=== PATIENT | male | born 1985 | race Caucasian/White ===

== ENCOUNTER → 2017-08-31 | Outpatient (CLI) | payer BC, OTHER | END | disposition home or self-care (01) | LOC: C.RDSM 14:22 | PROVIDERS: ATTEND Orthopaedic Surgery | DX: M25.531 Pain in right wrist (principal) ==

== ENCOUNTER → 2017-10-12 | Day surgery (SDC) | payer OTHER ==
[2017-10-08 13:42] VITALS: Ht 182.9 cm; Wt 86.4 kg
[~2017-10-12] VITALS: Ht 182.9 cm; Wt 86.4 kg
[~2017-10-12] MED LIST: ATROPINE SULFATE 0.1 MG/ML 5ML SYR IV PRN; BUPIVACAINE/EPINEPHRINE 0.5% MPF 1:200,000 30 ML VIAL ONE; CEFAZOLIN 2000MG IV PUSH 10 ML IV SCH; DIPH25CA5 PO; EpHEDrine SULFATE INJ 50 MG/ML AMP IV PRN; FENTANYL CITRATE INJ 50 MCG/1 ML 2 ML VIAL IV PRN; FENTANYL CITRATE INJ 50 MCG/1 ML 2 ML VIAL ONE; HYDROmorphone INJ 1 MG/ML SYR IV PRN; LACTATED RINGER'S 1000ML 1,000 ML IV SCH; LIDOCAINE HCL 2% 2 ML VIAL (20MG/ML) ONE; LIDOCAINE HCL 2% LOCAL 20 ML VIAL ONE; LORA10TA51 PO; METOCLOPRAMIDE HCL INJ 5 MG/ML 2 ML VIAL IV PRN; MIDAZOLAM HCL 1 MG/ML 2ML VIAL ONE; MoRPHine SULFATE 4 MG/ML 1 ML CARP\\VIAL IV PRN; ONDANSETRON INJ 2 MG/ML 2 ML VIAL IV PRN; ONDANSETRON INJ 2 MG/ML 2 ML VIAL ONE; OXYCODONE/ACETAMINOPHEN 5-325 TAB PO PRN; PATIENT'S ALLERGY INFO NEEDS ENTERED SCH; PATIENT'S HEIGHT AND/OR WEIGHT NEEDED SCH; PRLSR20 PO; PROMETHAZINE HCL INJ 12.5 MG in SODIUM CHLORIDE 0.9% 50ML 50 ML IV PRN; PROPOFOL IV EMULSION 10 MG/ML 20 ML VIAL IV ONE; SODIUM CHLORIDE 0.9% 1000ML 1,000 ML IV SCH
--- NOTE | 2017-10-12 06:40 | History & Physical Bridge - [place] ---
H&P Re-Evaluation Bridge Note: I have examined the patient, reviewed the History & Physical and in the interval since the performance of the History & Physical I have noted the following changes of clinical significance: No changes noted
[2017-10-12 08:55] VITALS: TEMP 36.4
--- NOTE | 2017-10-12 08:59 | [facility] Post Operative Brief Note ---
Immediate Operative Summary Operative Date Oct 12, 2017. Pre-Operative Diagnosis Right Wrist Dorsal Ganglion Cyst Post-Operative Diagnosis Same Procedure(s) Performed Right Dorsal Wrist Open Ganglion Cyst Excision Surgeon Dr Guerra Car Oiler Surgeon(s) Prasanth Stinson PA-C Estimated Blood Loss Minimal Findings Dorsal ganglion cyst excised and sent to pathology for permanent section Specimens A: Right Wrist Cyst Drains None Anesthesia MAC with local Complication(s) None Disposition Recovery Room / PACU
--- NOTE | 2017-10-12 09:02 | Discharge Instructions-SurgCtr ---
Discharge Instructions Date of Service Oct 12, 2017. Visit Reason for Visit: Right Wrist Dorsal Ganglion Cyst Discharge Discharge Diagnosis / Problem: S/P Right dorsal ganglion cyst excision Discharge Goals Goal(s): Decrease discomfort, Improve function, Increase independence Activity Recommendations Activity Limitations: as noted below Lifting Limitations: gradually increase as tolerated Exercise/Sports Limitations: gradually increase as tolerated Shower/Bathe: keep incision dry Driving or Machine Use: resume 1 day after discharge Anesthesia . Post Anesthesia Instructions: If you have had General Anesthesia or IV Sedation: * Do not drive today. * Resume driving when surgeon permits. * Do not make important decisions or sign legal documents today. * Call surgeon for: 1. Temperature elevations greater than 101 degrees F. 2. Uncontrollable pain. 3. Excessive bleeding. 4. Persistent nausea and vomiting. 5. Medication intolerance (nausea, vomiting or rash). * For nausea and vomiting use only clear liquids such as: tea, soda, bouillon until nausea subsides, then gradually increase diet as tolerated. * If you have any concerns or questions, call your surgeon's office. If physician is unavailable and it is an emergency, call 911 or go to the nearest emergency room. . Instructions / Follow-Up Instructions / Follow-Up ACTIVITY: * May use right upper extremity, hand, wrist, and fingers for gentle light activity and motion. Please avoid excessive use, repetitive use, and/or heavy lifting, pushing, pulling, or direct contact at the surgical site. DIET: * Resume previous diet. MEDICATIONS: * Please take your prescriptions as instructed at your pre-op appointment and/ or see medication discharge instructions listed above. * If concerns develop, call your physician's office at . SPECIAL CARE INSTRUCTIONS: * Ice/Elevate as instructed. * Keep dressing clean, dry, intact. * Your surgical extremity may be discolored due to prepping agents used on the skin. A bluish-green tint is a normal variant and should not cause alarm. Call your doctor at [phone] if: * Temperature above 101 degrees * Pain not relieved by pain medicine ordered * There is increased drainage or redness from any incision * You have any unanswered questions, problems or concerns. FOLLOW UP VISIT: * If not already scheduled, please call the office at to schedule a follow-up appointment. Diet Recommendations Home Diet: resume previous diet Procedures Procedures Performed: Right Dorsal Wrist Open Ganglion Cyst Excision Pending Studies Studies pending at discharge: no Medical Emergencies . Who to Call and When: Medical Emergencies: If at any time you feel your situation is an emergency, please call 911 immediately. . Non-Emergent Contact Non-Emergency issues call your: Primary Care Provider . . "Provider Documentation" section prepared by Prieto Stinson. . [place] Drug Monitoring Program Search Results: no issues identified
--- NOTE | 2017-10-12 09:05 | [facility] Operative Report ---
Operative Report Operative Date Oct 12, 2017. Pre-Operative Diagnosis Right Wrist Dorsal Ganglion Cyst Post-Operative Diagnosis Same Procedure(s) Performed Right Dorsal Wrist Open Ganglion Cyst Excision Surgeon Dr Gurera Plant Anatomist Surgeon(s) Prasanth Stinson PA-C Estimated Blood Loss Minimal Findings same Specimens A: Right Wrist Cyst Drains none Anesthesia sedation, local Complication(s) None Disposition Recovery Room / PACU Implants none Indications continued swelling and cystic change at the dorsum of the right wrist, failed conservative management, surgery recommended, consents signed Description of Procedure taken to the OR, prepped and draped, I was present the entire case, please see Dr. Guerra's operative note for further findings and detail I attest to the content of the Intraoperative Record and any orders documented therein. Any exceptions are noted below.
[2017-10-12 09:32] VITALS: BP 128/75; PULSE 67; O2SAT 100
--- NOTE | 2017-10-12 09:38 | OPERATIVE REPORT ---
DATE OF OPERATION: 10/12/2017 PREOPERATIVE DIAGNOSIS: Right dorsal ganglion cyst. POSTOPERATIVE DIAGNOSIS: Same. OPERATION PERFORMED: Right dorsal ganglion cyst excision. SURGEON: Dr. Pranav Guerra. CARDIAC CATH TECHNOLOGIST: Prieto Stinson PA-C. ANESTHESIA: MAC with local. ESTIMATED BLOOD LOSS: Minimal. SPECIMEN: Right dorsal ganglion cyst. COMPLICATIONS: None. INDICATIONS: Mr. Haney is a 31-year-old male who has had a dorsal ganglion cyst that has been refractory to conservative management. It is affecting his ADLs. It also bothers him playing piano which is something he enjoys doing. I had a long discussion with him about the risks and benefits of surgery, alternatives to surgery, and expected outcomes. After reviewing all these, he elected to proceed with surgery. All questions were answered. Informed consent was signed. OPERATIVE FINDINGS: The dorsal ganglion cyst was excised and sent to pathology for permanent section. It was emanating off the SL ligament. DESCRIPTION OF OPERATION: The patient was identified in the preoperative holding area where the surgical site was marked. He was brought back to the operating room where all bony prominences were padded, perioperative antibiotics were administered. He was prepped and draped in the normal sterile fashion. Prior to incision, a multidisciplinary timeout was called. All in the room were in agreement. We began by exsanguinating the limb with an Esmarch bandage, taking care not to overpressure the area of the cyst and cause it to rupture. Tourniquet was inflated to 250 mmHg. 3 mL of 2% lidocaine was used to anesthetize the skin. A transverse incision of 2 cm was made directly overlying the cyst which was held in approximately 45 degrees of flexion to maximally visualize the cyst. We dissected through the subcutaneous tissues. The dorsal extensor tendons were identified including the EPL and the fourth and second compartment tendons. He had significant amount of muscle belly of the EPL that was overlying the mass, it was blocking our visualization, and so a small, less than 1 cm portion of this muscle was excised to improve visualization. We then dissected along the sides of the cyst down to the dorsal capsular ligaments of the wrist. The stalk of the cyst was then followed through the wrist capsule and down on the SL ligament, taking care to preserve the dorsal wrist ligaments. The stalk was then excised at its base and bipolar cautery was used to cauterize the margins of the wrist capsule for bleeding control as well as to prevent cyst recurrence. The wound was irrigated with copious amounts of normal saline. 3-0 Monocryl was used in running fashion, followed by Steri-Strips, 2 x 2's, and a Tegaderm dressing. We did inject another 6 mL of 0.5% bupivacaine with epinephrine at the conclusion of the case for postoperative pain control. The patient's sedation was lifted and he was transferred to the recovery room in stable condition. POSTOPERATIVE COURSE: The patient will be discharged home from the recovery room. He will start immediate active range of motion of his hand. No lifting for 4 weeks. He will follow up in 2 weeks for recheck. We will plan on starting him on physical therapy then. I attest to the content of the Intraoperative Record and any orders documented therein. Any exception s are noted below.
--- NOTE | 2017-10-12 09:42 | Anesthesia Progress Nt - [facility] ---
Anesthesia Post Op Note Date & Time Oct 12, 2017 at 09:42 Vital Signs Pain Intensity: 0 Vital Signs Past 12 Hours Date Time Temp Pulse Resp B/P (MAP) Pulse Ox O2 Delivery O2 Flow Rate FiO2 10/12/17 09:32 67 20 128/75 (92) 100 Room Air 10/12/17 08:55 36.4 81 12 142/85 (104) 98 Room Air 10/12/17 06:35 36.7 67 18 139/88 (105) 97 Room Air Notes Mental Status: alert / awake / arousable, participated in evaluation Pt Amnestic to Procedure: Yes Nausea / Vomiting: adequately controlled Pain: adequately controlled Airway Patency, RR, SpO2: stable & adequate BP & HR: stable & adequate Hydration State: stable & adequate Anesthetic Complications: no major complications apparent
== END | disposition home or self-care (01) ==
LOC: X.SURG 06:25
PROVIDERS: ATTEND Orthopaedic Surgery
DX: M67.431 Ganglion, right wrist (principal); D68.0 Von Willebrand disease; K21.9 Gastro-esophageal reflux disease without esophagitis